=== PATIENT | male | born 1955 | race Caucasian/White ===

== ENCOUNTER → 2016-11-17 | Outpatient (CLI) | payer OTHER ==
[~2016-11-17] MED LIST: COLACE 100MG C100 MG PO; HYDROCHLOROTH12.5 M1 PO; IPRAT-ALBUT 0.5-3 ML INH; KLONOPIN0.5 MG PO; NORCO 10-325 T1 EACH PO; NORCO 7.5-3251 EACH PO; OMEPRAZOLE20 MG PO; PROVENTIL HFA 61 INH INH
== END ==
LOC: HEART 5 10:24
DX: J44.9 Chronic obstructive pulmonary disease, unspecified (principal); F17.210 Nicotine dependence, cigarettes, uncomplicated; R94.2 Abnormal results of pulmonary function studies
CPT/HCPCS: 94060; 94729

== ENCOUNTER → 2016-11-19 | Outpatient (CLI) | payer OTHER | LOC: EXRD 10:10 | DX: J41.0 Simple chronic bronchitis (principal) | CPT/HCPCS: 71020 ==